=== PATIENT | male | born 2000 | race Caucasian/White ===

== ENCOUNTER 2024-09-26 14:31 | Emergency (ER) | payer OTHER ==
[~2024-09-26] VITALS: Ht 185.4 cm; Wt 65.3 kg
[2024-09-26 14:51] LABS: BASOPHILS % (AUTO) 0.4 % (0.0-2.0); EOSINOPHILS # (AUTO) 0.3 K/uL (0.0-0.7); EOSINOPHILS % (AUTO) 2.9 % (0.0-6.0); HEMATOCRIT 39 % (39-51); HEMOGLOBIN 12.9 g/dL (13.5-17.5); MEAN CORPUSCULAR HEMOGLOBIN 28 PG (26.0-33.0); MEAN CORPUSCULAR HGB CONC 33 g/dl (31.0-36.0); MEAN CORPUSCULAR VOLUME 86 fL (80-96); MONOCYTES # (AUTO) 0.7 K/uL (0.1-1.30); MONOCYTES % (AUTO) 7.4 % (2.0-12.0); NEUTROPHILS # (AUTO) 5.6 K/uL (1.8-8.9); NEUTROPHILS % (AUTO) 58.3 % (43.0-81.0); PLATELET COUNT (AUTO) 303 K/uL (150-450); RED BLOOD CELL COUNT(AUTO) 4.56 MIL/uL (4.5-6.0); RED CELL DISTRIBUTION WIDTH 16.6 % (11.5-15.0); WHITE BLOOD COUNT (AUTO) 9.7 K/uL (4.3-11.0)
[2024-09-26 14:58] LABS: CALCIUM, SERUM 8.5 mg/dL (8.5-10.1); CARBON DIOXIDE 27 mmol/L (21-32); CHLORIDE 109 mmol/L (98-107); GLUCOSE 101 mg/dL (74-106); POTASSIUM 3.3 mmol/L (3.5-5.1); SODIUM SERUM 143 mmol/L (136-145); UREA NITROGEN, BLOOD 10 mg/dL (7-18)
[2024-09-26] MEDS ORDERED: OLANZAPINE 10 MG VIAL IM ONE (14:59)
[2024-09-26] MEDS: OLANZAPINE 10 MG VIAL IM ONE (15:04)
[2024-09-26 15:11] LABS: ACETAMINOPHEN <10 ug/ml (10-30); ALANINE AMINOTRANSFERASE 21 U/L (12-78); ALBUMIN 3.6 g/dL (3.4-5.0); ALCOHOL, BLOOD < 3 mg/dL (0-10); ALKALINE PHOSPHATASE 83 U/L (46-116); ASPARTATE AMINOTRANSFERASE 13 U/L (15-37); BILIRUBIN,DIRECT 0.2 mg/dL (0.0-0.2); BILIRUBIN,TOTAL 0.6 mg/dL (0.2-1.0); SALICYLATE 0.8 mg/dL (2.8-20.0); TOTAL PROTEIN, SERUM 6.7 g/dL (6.4-8.2)
[2024-09-26 15:54] LABS: APPEARANCE,URINE CLEAR (CLEAR); BILIRUBIN,URINE Negative (NEGATIVE); BLOOD, URINE Negative Ery/uL (NEGATIVE); COLOR,URINE YELLOW (YELLOW); KETONES,URINE Negative (NEGATIVE); LEUKOCYTE ESTERASE ,URINE Negative (NEGATIVE); PH,URINE 6.5 (5.0-8.0); PROTEIN,URINE Trace mg/dl (NEGATIVE); UGLUCOSE Negative (NEGATIVE); UROBILINOGEN,URINE 0.2 EU/dL (0.2)
[2024-09-26 15:57] LABS: NITRITE, URINE NEGATIVE (NEGATIVE)
[2024-09-26 15:59] LABS: ADD URINE CULTURE NO; BACTERIA,URINE None seen /HPF (None Seen); RBC,URINE 0-2 /HPF (0-2); SQUAMOUS EPITHELIAL CELL,UR None Seen /HPF (None Seen); WBC,URINE 0-2 /HPF (0-3)
[2024-09-26 16:02] LABS: AMPHETAMINE, URINE NEGATIVE (NEGATIVE); BARBITURATE, URINE NEGATIVE (NEGATIVE); BENZODIAZEPINE, URINE POSITIVE (NEGATIVE); CANNABINOID, URINE POSITIVE (NEGATIVE); COCCAINE, URINE POSITIVE (NEGATIVE); OPIATE, URINE NEGATIVE (NEGATIVE); PHENCYCLIDINE SCREEN,URINE NEGATIVE (NEGATIVE)
[2024-09-26] MEDS ORDERED: NALO4SPR BNOSTRILS (20:31)
[2024-09-27 12:53] VITALS: BP 110/70; TEMP 98.5; O2SAT 98
== END 2024-09-27 12:54 | disposition home or self-care (01) ==
LOC: EDBD 14:35 → ER 14:35
DX: T40.412A Poisoning by fentanyl or fentanyl analogs, intentional self-harm, initial encounter (principal); T42.4X2A Poisoning by benzodiazepines, intentional self-harm, initial encounter; R45.851 Suicidal ideations; Z20.822 Contact with and (suspected) exposure to COVID-19; Y92.89 Other specified places as the place of occurrence of the external cause
CPT/HCPCS: 99285; 96372; 85025; 80048; 80076; 81001; 36415; 87426; 80143; 80320; 80307; J3490; A6403; G0480